=== PATIENT | female | born 1960 | race Caucasian/White ===

== ENCOUNTER 2017-10-29 08:09 | Outpatient (CLI) | payer BC, OTHER ==
--- NOTE | 2017-10-29 11:27 | CT ---
CT ABDOMEN AND PELVIS WITH IV AND ORAL COTNRAST: HISTORY: Abdominal pain. Fever. FINDINGS: No comparison. The lung bases are clear. The liver, spleen, adrenal glands, and pancreas have a nor mal CT appearance. There is calcification in the arterial structures. Multiple small calcifications are present within nondilated calyces of each kidney, measuring up to 0 .4 cm at the mid portion of the left kidney. Ureters are decompressed. Diverticula arise from the colon. There is circumferential wall thickening involving the sigmoid col on with stranding in the adjacent fat. No abscess collection is apparent. Urinary bladder is incomp letely distended. IMPRESSION: 1. Sigmoid diverticulitis, noncomplicated. 2. Nonobstructing bilateral renal calculi. Findings were called to Dr. Toney at 1015 hours. CODE CR POS: [facility]
[2017-10-29] MEDS ORDERED: Iopamidol 370 76% 100 ML VIAL ONE (13:54)
== END 2017-10-29 08:10 | disposition home or self-care (01) ==
LOC: RAD-BREN 08:09
PROVIDERS: ATTEND Internal Medicine
DX: K59.00 Constipation, unspecified (principal); K57.32 Diverticulitis of large intestine without perforation or abscess without bleeding; N20.0 Calculus of kidney
CPT/HCPCS: 74177